=== PATIENT | male | born 1950 | race Caucasian/White ===

== ENCOUNTER → 2017-12-17 13:01 | Outpatient (CLI) | payer BC, MEDICARE, SELFPAY ==
--- NOTE | 2017-12-17 13:25 | MR_ITS ---
MR head/brain wo con HISTORY: Left-sided facial numbness, paresthesias, TIA ITS.REASON: FACIAL PARESTHESIA ORDERING PHYSICIAN: Jack Myers MD PATIENT AGE: 67 years COMPARISON: 07/17/2016 TECHNIQUE: Standard multiplanar multiecho sequences are performed without contrast. FINDINGS: No midline shift, mass effect, intracranial hemorrhage, or hydrocephalus is evident. No evidence of acute infarction. There is generalized atrophy with scattered periventricular and subcortical T2 white matter hyperintensities consistent with ischemic gliotic change from microvascular disease. A small cystic area encephalomalacia has developed in the deep white matter of the right parietal lobe posteriorly measuring 3 mm. No other significant changes evident. The cerebellopontine angles, cerebellum, brainstem are unremarkable. No mastoid effusion or sinus air-fluid level. IMPRESSION: 1. No acute intracranial findings. 2. Atrophy with chronic ischemic gliotic changes. A small area of cystic encephalomalacia has developed in the right parietal lobe consistent with a small lacunar infarction which has developed in the interval. No acute infarction evident
== END ==
PROVIDERS: Family Provider Family Medicine; PCP Family Medicine; Visit Provider Family Medicine
DX: R20.2 Paresthesia of skin (principal)
CPT/HCPCS: 70551

== ENCOUNTER → 2018-02-25 11:40 | Outpatient (CLI) | payer OTHER, BC, MEDICARE, SELFPAY | PROVIDERS: PCP Family Medicine; Visit Provider Physician Assistant Medical | DX: Z79.891 Long term (current) use of opiate analgesic (principal) | CPT/HCPCS: 93005 ==

== ENCOUNTER → 2018-09-28 13:13 | Outpatient (CLI) | payer BC, MEDICARE, SELFPAY | PROVIDERS: PCP Family Medicine; Visit Provider Nurse Practitioner Adult Health | DX: Z79.899 Other long term (current) drug therapy (principal) | CPT/HCPCS: 93005 ==

== ENCOUNTER → 2019-09-27 15:49 | Outpatient (CLI) | payer OTHER, MEDICARE, SELFPAY ==
--- NOTE | 2019-09-27 16:11 | ECG_ITS ---
APPROVED REPORT Exam: Resting ECG HR:90 bpm ECG Measurements Heart Rate 90 AXES WV 108 P 29 QRSd 152 QRS 210 QT 408 T 26 QTc 499 <Conclusion> Sinus rhythm with short WV Right bundle branch block old isolated q in iii Abnormal ECG Electronically signed by : Lukas Be, 09/29/2019 09:18:42
== END ==
PROVIDERS: PCP Family Medicine; Visit Provider Nurse Practitioner Family
DX: Z79.899 Other long term (current) drug therapy (principal)
CPT/HCPCS: 93005

== ENCOUNTER → 2019-12-13 11:00 | Outpatient (CLI) | payer MEDICARE, SELFPAY ==
--- NOTE | 2019-12-13 11:12 | ECG_ITS ---
APPROVED REPORT Exam: Resting ECG HR:83 bpm ECG Measurements Heart Rate 83 AXES UT 126 P 43 QRSd 144 QRS 228 QT 394 T 38 QTc 462 <Conclusion> Normal sinus rhythm Right bundle branch block Inferior infarct, age undetermined Abnormal ECG Electronically signed by : Lukas Be, 12/16/2019 08:52:27
== END ==
PROVIDERS: PCP Family Medicine; Visit Provider Nurse Practitioner Family
DX: Z79.899 Other long term (current) drug therapy (principal)
CPT/HCPCS: 93005

== ENCOUNTER 2020-10-05 17:52 | Emergency (ER) | payer MEDICARE, SELFPAY ==
[2020-10-05 18:03] VITALS: BP 139/81; PULSE 118; RESP 18; TEMP 36.6; O2SAT 94; BMI 16.2
--- NOTE | 2020-10-05 18:09 | CT_ITS ---
PROCEDURE: CT CERVICAL SPINE WO CON CLINICAL INDICATION: fall, pain COMPARISON: No exams were available for comparison TECHNIQUE: Axial images obtained with sagittal and coronal reformats. All CT scans at the facility use one or more dose reduction, viz: automated exposure control, ma/kV adjustment per patient size (including targeted exams where dose is matched to indication, i.e. head), or iterative reconstruction technique. Axial spiral CT scanning performed of the cervical spine beginning at the base of the skull and continuing to the upper T-spine. 3-D multiplanar reconstruction with 3-D manipulation of volumetric data set in image rendering was completed by the radiologist and/or technologist with the supervision of the radiologist on independent workstation. FINDINGS: No fracture nor subluxation is evident. Normal prevertebral soft tissues. There is normal curvature and alignment. Disc spaces are well maintained and no significant degenerate changes are seen. There is minor arthritic changes of the atlantoaxial joint with spurring of the tip of the odontoid and superior border of the anterior arch of C1. IMPRESSION: Cervical spine intact with no fracture nor subluxation. Dictated by: Dr. Gabriel Spears MD 10/06/2020 08:29 Dr. Gabriel Spears MD in [facility] 10/06/2020 08:29
--- NOTE | 2020-10-05 18:10 | [facility].EDGENADL ---
ED Disposition Clinical Impression: Hyperglycemia Transient cerebral ischemia Qualifiers: Transient cerebral ischemia type: unspecified Qualified Code(s): G45.9 - Transient cerebral ischemic attack, unspecified Disposition: Home, Self-Care Condition on Discharge: Good Additional Instructions: Follow-up with your PCP on Thursday. Return to the emergency department immediately if you develop any new weakness, slurred speech, confusion Referrals: Jack Myers MD [Primary Care Provider] - 3 days - Critical Care Critical Care Time: No Attestation: On 10/05/20, the high probability of a clinically significant, sudden or life threatening deterioration of the following system(s) required my full and direct attention, intervention and personal management. The time I documented below is in addition to time spent performing reported procedures but includes the following listed in this critical care notation. Medical Decision Making - Domo Inquiry Pt receiving controlled substance: No Vital Signs: 10/05/20 18:03 Temperature 97.9 F Temperature Source Oral Pulse Rate [Radial] 118 H Respiratory Rate 18 Blood Pressure [Right Arm] 139/81 Blood Pressure Mean [Right Arm] 100 Blood Pressure Source [Right Arm] Automatic Cuff Blood Pressure Position [Right Arm] Sitting 02 Sat by Pulse Oximetry 94 L Oxygen Delivery Method Room Air - Lab Data Lab Results 10/05/20 18:20: WBC 13.5 H, RBC 5.14, Hgb 15.3, Hct 44.0, MCV 85.6, MCH 29.8, MCHC 34.8, RDW 14.2, Plt Count 259, MPV 7.4, Neut % (Auto) 82.6 H, Lymph % (Auto) 10.9, [place] % (Auto) 5.9, Eos % (Auto) 0.3, Baso % (Auto) 0.3, Neut # (Auto) 11.1 H, Lymph # (Auto) 1.5, [place] # (Auto) 0.8, Eos # (Auto) 0.0, Baso # (Auto) 0.0 10/05/20 18:20: Sodium 131 L, Potassium 3.7, Chloride 89 L, Carbon Dioxide 27, Anion Gap 18.7 H, BUN 20, Creatinine 0.90, Estimated Creat Clear 48, Estimated GFR 84, Est GFR ( Amer) 101, Glucose 424 H*, Calcium 10.5 H, Total Bilirubin 0.8, AST 48, ALT 49, Alkaline Phosphatase 121, Total Protein 6.9, Albumin 4.1, Globulin 2.8, Albumin/Globulin Ratio 1.5 Result diagrams: 10/05/20 18:20 10/05/20 18:20 Orders (Tests/Meds): ED MEDICATIONS Discontinued Medications Generic Name Dose Route Start Last Admin Trade Name Alexandra PRN Reason Stop Dose Admin Ioversol 50 ml 10/05/20 18:46 10/05/20 18:49 Ioversol-320 (68%) 50ml Bottle IV 10/05/20 18:47 50 ml ONCE ONE Administration Protocol Ioversol 50 ml 10/05/20 18:48 10/05/20 18:49 Ioversol-320 (68%) 50ml Bottle IV 10/05/20 18:49 50 ml ONCE ONE Administration Protocol Sodium Chloride 10 ml 10/05/20 18:46 10/05/20 18:49 Sodium Chloride 0.9% 10ml Syr (Rad Only) IV 10/05/20 18:47 10 ml ONCE ONE Administration ORDERS Category Date Time Status CT cervical spine wo con Stat Cat Scan 10/05/20 18:[address] head/brain wo/w con Stat Cat Scan 10/05/20 18:12 Taken UA [Urinalysis and Microscopic] Stat Lab 10/05/20 18:11 Ordered - CT Data CT Scan: Head, C-Spine Time Received: 18:[address] Reviewed: Yes: I discussed the CT results w/the radiologist Findings Narrative: Discussed CT findings with the radiologist. No acute findings. Chronic changes, lacunar infarct. - ECG Data Tracing #1 Sinus tachycardia 114 bpm, frequent PVCs, fusion complexes. EKG is unchanged from previous study. ECG initial impression date: 10/05/20 ECG initial impression time: 19:40 Normal Sinus Rhythm: Yes Medical Decision Narrative: 70yo M evaluated for possible stroke. Patient's exam is benign. Patient's work-up is benign, other than his hyperglycemia. Discussed with the patient is a holiday in a Thursday. He therefore would not be able to obtain an MRI at this facility until Thursday. Discussed the risk of hospitalization right now with current Covid numbers. Believe the patient be better served by following up with his PCP on Thursday. He can obtain outpatient MRI if it is felt
--- NOTE | 2020-10-05 18:12 | CT_ITS ---
PROCEDURE: CT HEAD/BRAIN WO/W CON CLINICAL INDICATION: code stroke Patient fell 1 day ago, complaining of generalized weakness COMPARISON: No exams were available for comparison TECHNIQUE: IV Contrast: 100ML Isovue 370 Axial images obtained. All CT scans at the facility use one or more dose reduction, viz: automated exposure control, ma/kV adjustment per patient size (including targeted exams where dose is matched to indication, i.e. head), or iterative reconstruction technique. FINDINGS: No midline shift, mass effect, intracranial hemorrhage, hydrocephalus, or extra-axial fluid collection is evident. The basilar cisterns are slightly prominent, the sylvian fissures and cortical sulci are prominent. There are old ischemic infarcts in the basal ganglia bilaterally. There moderate diffuse hypodensities of the periventricular white matter is consistent with ischemic white matter changes. Following injection of contrast there is excellent opacification of the [id number] with no evidence of aneurysm or abnormal enhancement. There is a rather prom transverse sinus right-side a normal variation. The calvarium has an unremarkable appearance. The mastoids are clear, both internal auditory canals appear normal. The visualized paranasal sinuses are clear. IMPRESSION: Findings of mild age-appropriate cortical atrophy and mild chronic ischemic white matter changes, no acute intracranial pathology noted Dictated by: Dr. Gabriel Spears MD 10/06/2020 08:38 Dr. Gabriel Spears MD in [facility] 10/06/2020 08:38
[2020-10-05 18:30] LABS: Basophils % 0.3 % (0.1-2.0); Eosinophils % 0.3 % (0.1-12.0); Hemoglobin 15.3 g/dL (14.1-18.0); Lymphocytes # 1.5 K/mm3 (0.7-4.5); Lymphocytes % 10.9 % (10-50); Mean Corpuscular HGB Conc 34.8 g/dL (31.8-35.4); Mean Corpuscular Hemoglobin 29.8 pg (27.0-31.2); Mean Corpuscular Volume 85.6 fl (80-94); Mean Platelet Volume 7.4 fl (7.4-10.4); Monocytes # 0.8 K/mm3 (0.1-1.0); Monocytes % 5.9 % (1.7-9.3); Neutrophils # 11.1 K/mm3 (1.8-7.8); Neutrophils % 82.6 % (37.0-80.0); Platelet Count 259 K/mm3 (142-424); Red Blood Count 5.14 M/mm3 (4.60-6.20); Red Cell Distribution Width 14.2 % (11.5-17.5); White Blood Count 13.5 K/mm3 (4.8-10.8)
[2020-10-05 18:41] LABS: Alanine Aminotransferase 49 U/L (12-78); Albumin Level 4.1 g/dl (3.5-5.0); Albumin/Globulin Ratio 1.5 (1.1-1.8); Alkaline Phosphatase 121 U/L (38-126); Anion Gap 18.7 mEq/L (5-15); Aspartate Amino Transferase 48 U/L (17-59); Bilirubin,Total 0.8 mg/dl (0.2-1.3); Blood Urea Nitrogen 20 mg/dl (9-20); Calcium 10.5 mg/dl (8.4-10.2); Carbon Dioxide 27 mmol/L (22.0-30.0); Chloride 89 mmol/L (98-107); Creatinine Clearance Estimated 48 mL/min (50-200); Estimated Glomerular Filt Rate 84 ml/min (>60); GFR (African American) 101 ML/MIN (>60); Globulin 2.8 g/dL (1.3-3.2); Potassium 3.7 mmoL/L (3.5-5.1); Sodium 131 mmol/L (136-145); Total Protein,Serum 6.9 g/dl (6.3-8.2)
[2020-10-05 18:45] LABS: Glucose 424 mg/dl (74-100)
--- NOTE | 2020-10-05 18:46 | PC.NURSE ---
Dr. Ball notified of glucose
--- NOTE | 2020-10-05 18:48 | PC.NURSE ---
Dr Ball speaking with pinky
--- NOTE | 2020-10-05 19:38 | ECG_ITS ---
APPROVED REPORT Exam: Resting ECG HR:114 bpm ECG Measurements Heart Rate 114 AXES MT 126 P 35 QRSd 132 QRS 235 QT 380 T 14 QTc 523 Conclusion Sinus tachycardia with frequent and consecutive premature ventricular complexes and fusion complexes Right bundle branch block Abnormal ECG Electronically signed by : Lukas Be, 10/06/2020 07:38:57
[2020-10-05 20:11] VITALS: BP 130/76; PULSE 86; RESP 14; TEMP 36.6; O2SAT 96
[2020-10-06 06:12] LABS: POC Glucose,Bedside 429 (70-110)
== END 2020-10-05 20:15 | disposition home or self-care (01) ==
PROVIDERS: Emergency Provider Family Medicine; PCP Family Medicine
DX: G45.8 Other transient cerebral ischemic attacks and related syndromes (principal); R73.9 Hyperglycemia, unspecified; E78.5 Hyperlipidemia, unspecified; I10 Essential (primary) hypertension; Z79.899 Other long term (current) drug therapy; Z87.891 Personal history of nicotine dependence
CPT/HCPCS: 70470; 72125; 80053; 82962; 85025; 93005; 96372; 99283; Q9967